=== PATIENT | female | born 1960 | race Caucasian/White ===

== ENCOUNTER → 2016-07-15 | Outpatient (CLI) | payer OTHER | LOC: WI 13:27 | DX: Z12.31 Encounter for screening mammogram for malignant neoplasm of breast (principal); Z00.00 Encounter for general adult medical examination without abnormal findings | CPT/HCPCS: 77067; G0202 ==

== ENCOUNTER 2016-10-11 06:15 | Emergency (ER) | payer OTHER ==
[2016-10-11 06:23] VITALS: BP 150/102
--- NOTE | 2016-10-11 06:45 | ER Document Report ---
ED General - General Chief Complaint: Sinus Congestion Stated Complaint: SORE THROAT Time Seen by Provider: 10/11/16 06:26 Mode of Arrival: Ambulatory Information source: Patient Notes: 56 yr old female presents with complaints of frontal sinus pressure of 3 week duraiton and drainage from the eyes of 5 weeks duration. pt denies any fevers or chills. pt notes she was on azithromycin with some improvement. admits to intermittent productive cough, is a smoker TRAVEL OUTSIDE OF THE [place] IN LAST 30 DAYS: No - HPI Onset: Other Onset/Duration: Persistent Quality of pain: No pain Severity: Mild Pain Level: Denies Associated symptoms: Productive cough, Sinus pain/drainage Exacerbated by: Denies Relieved by: Denies Similar symptoms previously: Yes Recently seen / treated by doctor: Yes - Related Data Allergies/Adverse Reactions: Sulfa (Sulfonamide Antibiotics) Allergy (Verified 10/11/16 06:23) Past Medical History - Social History Smoking Status: Current Every Day Smoker Cigarette use (# per day): Yes Chew tobacco use (# tins/day): No Smoking Education Provided: No Family History: Reviewed & Not Pertinent Patient has suicidal ideation: No Patient has homicidal ideation: No Renal/ Medical History: Denies: Hx Peritoneal Dialysis Review of Systems - Review of Systems Notes: REVIEW OF SYSTEMS: CONSTITUTIONAL : Denies fever, chills, or sweats. Denies recent illness. EENT: admits to sinus drainage , admits to sore throat CARDIOVASCULAR: Denies chest pain. Denies palpitations or racing or irregular heart beat. Denies ankle edema. RESPIRATORY: admits to cough productive GASTROINTESTINAL: Denies abdominal pain or distention. Denies nausea, vomiting , or diarrhea. Denies blood in vomitus, stools, or per rectum. Denies black, tarry stools. Denies constipation. GENITOURINARY: Denies difficulty urinating, painful urination, burning, frequency, blood in urine, or discharge. FEMALE GENITOURINARY: Denies vaginal bleeding, heavy or abnormal periods, irregular periods. Denies vaginal discharge or odor. MUSCULOSKELETAL: Denies back or neck pain or stiffness. Denies joint pain or swelling. SKIN: Denies rash, lesions or sores. HEMATOLOGIC : Denies easy bruising or bleeding. LYMPHATIC: Denies swollen, enlarged glands. NEUROLOGICAL: Denies confusion or altered mental status. Denies passing out or loss of consciousness. Denies dizziness or lightheadedness. Denies headache. Denies weakness or paralysis or loss of use of either side. Denies problems with gait or speech. Denies sensory loss, numbness, or tingling. Denies seizures. PSYCHIATRIC: Denies anxiety or stress. Denies depression, suicidal ideation, or homicidal ideation. ALL OTHER SYSTEMS REVIEWED AND NEGATIVE. PHYSICAL EXAMINATION: GENERAL: Well-appearing, well-nourished and in no acute distress. HEAD: Atraumatic, normocephalic. EYES: conjunctival erythema , no drainage ENT: Nares patent, oropharynx clear without exudates. Moist mucous membranes. NECK: Normal range of motion, supple without lymphadenopathy LUNGS: Breath sounds clear to auscultation bilaterally and equal. No wheezes rales or rhonchi. HEART: Regular rate and rhythm without murmurs ABDOMEN: Soft, nontender, nondistended abdomen. No guarding, no rebound. No masses appreciated. Female : deferred Musculoskeletal: Normal range of motion, no pitting or edema. No cyanosis. NEUROLOGICAL: Cranial nerves grossly intact. Normal speech, normal gait. Normal sensory, motor exams PSYCH: Normal mood, normal affect. SKIN: Warm, Dry, normal turgor, no rashes or lesions noted. Dictation was performed using [employer] voice recognition software Physical Exam - Vital signs Vitals: Temp Pulse Resp BP Pulse Ox 98.0 F 86 18 150/102 H 99 10/11/16 06:20 10/11/16 06:20 10/11/16 06:20 10/11/16 06:20 10/11/16 06:20 Course - Re-evaluation Re-evalutation: 10/11/16 06:45 Patient overall looks well will be started on antibiotics for her sinusitis that she is insisting on as well as steroids. Patient also wishes to be treated for conjunctivitis given that symptoms have been ongoing greater than 4 weeks I will treat as bacterial as it has not since improved After performing a Medical Screening Examination, I estimate there is LOW risk for ACUTE CORONARY SYNDROME, RESPIRATORY FAILURE, SEPSIS OR MENINGITIS, thus I consider the discharge disposition reasonable. I have reevaluated this patient multiple times and no significant life threatening changes are noted. The patient and I have discussed the diagnosis and risks, and we agree with discharging home with close follow-up. We also discussed returning to the Emergency Department immediately if new or worsening symptoms occur. We have discussed the symptoms which are most concerning (e.g., changing or worsening pain, trouble swallowing or breathing, neck stiffness, fever) that necessitate immediate return. - Vital Signs Vital signs: Temp Pulse Resp BP Pulse Ox 98.0 F 86 18 150/102 H 99 10/11/16 06:20 10/11/16 06:20 10/11/16 06:20 10/11/16 06:20 10/11/16 06:20 Discharge - Discharge Clinical Impression: Bacterial conjunctivitis Sinusitis Qualifiers: Sinusitis location: frontal Chronicity: subacute Qualified Code(s): J01.10 - Acute frontal sinusitis, unspecified Condition: Stable Disposition: HOME, SELF-CARE Instructions: Conjunctivitis ([facility]) Additional Instructions: Follow up with your physician tomorrow for further care or return to the ED IMMEDIATELY if symptoms worsen or new concerns occur. If you cannot afford to follow up with your primary care physician a list of low cost clinics have been provided at the end of your discharge papers as well. Prescriptions: Amox Tr/Potassium Clavulanate [Augmentin 875-125 Tablet] 1 tab PO BID 10 Days Ciprofloxacin HCl [Ciloxan 0.3% Oph Soln 2.5 ml] 2 drop OU Q6 10 Days Prednisone [Deltasone 20 mg Tablet] 3 tab PO DAILY 5 Days
== END 2016-10-11 06:58 | disposition home or self-care (01) ==
LOC: ER 06:15
DX: J01.10 Acute frontal sinusitis, unspecified (principal); H10.9 Unspecified conjunctivitis; R09.81 Nasal congestion; J02.9 Acute pharyngitis, unspecified; R05 Cough; F17.200 Nicotine dependence, unspecified, uncomplicated; F17.210 Nicotine dependence, cigarettes, uncomplicated
CPT/HCPCS: 99283

== ENCOUNTER 2016-11-28 11:02 | Emergency (ER) | payer SELFPAY ==
[2016-11-28] MEDS ORDERED: PREDNISONE 20 MG TABLET PO ONE (11:50)
--- NOTE | 2016-11-28 13:08 | ER Document Report ---
HPI - HPI Patient complains to provider of: Skin rash, eye itching Onset: Other - Facial rash started today, I itching for the past 3 months Onset/Duration: Persistent Quality of pain: No pain Pain Level: Denies Context: Patient states that she woke up with a facial rash today. Patient denies any new foods, medications, or detergents. Patient complains of itching eyes that have been red for the past 3 months. Patient has been on several courses of eyedrops but has not followed up with an production support consultant because she does not have any insurance. Patient does not wear contact lenses but does occasionally wear reading glasses. Patient denies any change in vision. Patient states that she has had just clear drainage from her eyes. Patient denies any difficulty breathing or chest pain. Associated Symptoms: Other - Facial rash, eye redness Exacerbated by: Denies Relieved by: Denies Similar symptoms previously: Yes Recently seen / treated by doctor: No - ROS ROS below otherwise negative: Yes Systems Reviewed and Negative: Yes All other systems reviewed and negative - CONSTITUTIONAL Constitutional: DENIES: Fever, Chills - EENT EENT: REPORTS: Eye problems. 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 IN LAST 30 DAYS: No - HEENT HEENT: Atraumatic, Normocephalic. negative: Pharyngeal Exudate, Pharyngeal Tenderness, Pharyngeal Erythema, Tympanic Membrane Red, Tympanic Membrane Bulging Notes: No angioedema, no potential airway compromise Extraocular movements intact, Perrl, no fluorescein uptake, no corneal abrasion , dendrite, ulcer, or foreign body Sclera of lateral eyes mildly injected with mild tearing. - NECK Neck: Normal Inspection, Supple - RESPIRATORY Respiratory: Breath Sounds Normal, No Respiratory Distress, Chest Non-Tender O2 Sat by Pulse Oximetry: 99 - CARDIOVASCULAR Cardiovascular: Regular Rate, Regular Rhythm, No Murmur - BACK Back: Normal Inspection - MUSCULOSKELETAL/EXTREMETIES Musculoskeletal/Extremeties: MAEW, FROM - NEURO Level of Consciousness: Awake, Alert, Appropriate Motor/Sensory: No Motor Deficit - DERM Integumentary: Warm, Dry, Rash - mild erythematous rash to face, no angioedema Course - Re-evaluation Re-evalutation: 11/28/16 The patient has been informed that they may have pre-hypertension or hypertension based on a blood pressure reading in the emergency department. I recommend that patient call the primary care provider listed on their discharge instructions or a physician of their choice by this week to arrange follow-up for further evaluation of possible pre-hypertension or hypertension. Patient strongly encouraged to follow-up with production support consultant for further evaluation given that she has had the symptoms for several months. Patient encouraged to take [id number] antihistamine daily such as Claritin, Zyrtec or Radha. - Vital Signs Vital signs: Temp Pulse Resp BP Pulse Ox 97.7 F 84 16 142/93 H 99 11/28/16 11:09 11/28/16 11:09 11/28/16 11:09 11/28/16 11:09 11/28/16 11:09 Discharge - Discharge Clinical Impression: Elevated blood pressure reading, Skin rash Allergic conjunctivitis Qualifiers: Laterality: bilateral Qualified Code(s): H10.13 - Acute atopic conjunctivitis, bilateral Condition: Stable Disposition: HOME, SELF-CARE Instructions: Conjunctivitis, Allergic, Steroid Medication Additional Instructions: Return immediately for any new or worsening symptoms Followup with your primary care provider, call tomorrow to make a followup appointment Follow-up with production support consultant for further evaluation Take an antihistamine such as Zyrtec [id number] daily for your symptoms Prescriptions: Naphazoline HCl/Pheniramine [Eye Allergy Relief Drops] 1 drop OP QID #1 bottle RX: Prednisone [Deltasone 20 mg Tablet] 3 tab PO DAILY 4 Days tablet Referrals: ROBINA ESPINOSA MD [Primary Care Provider] - Follow up as needed [facility] [Provider Group] - Follow up tomorrow
[2016-11-28 13:32] VITALS: BP 140/85
== END 2016-11-28 13:32 | disposition home or self-care (01) ==
LOC: ER 11:02
DX: H10.13 Acute atopic conjunctivitis, bilateral (principal); R21 Rash and other nonspecific skin eruption; R03.0 Elevated blood-pressure reading, without diagnosis of hypertension; F17.200 Nicotine dependence, unspecified, uncomplicated
CPT/HCPCS: 99282; J7512

== ENCOUNTER 2016-12-04 00:37 | Emergency (ER) | payer OTHER ==
[2016-12-04] MEDS ORDERED: LIDOCAINE 4%/TETRACAINE 0.5%/EPI 0.18% 5 ML TOPICAL SOLN TOP ONE (04:23)
[2016-12-04] MEDS ORDERED: LIDOCAINE 1% INJ-PF (10 MG/ML) 30 ML SDV INJ ONE (04:23)
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
[2016-12-04 06:31] VITALS: BP 136/84
== END 2016-12-04 06:38 | disposition home or self-care (01) ==
LOC: ER 00:37
PROC: 0HQ1XZZ Repair Face Skin, External Approach (ICD-10-PCS; principal; 2016-12-04)
DX: S02.40DA Maxillary fracture, left side, initial encounter for closed fracture (principal); S01.112A Laceration without foreign body of left eyelid and periocular area, initial encounter; Y04.2XXA Assault by strike against or bumped into by another person, initial encounter; I10 Essential (primary) hypertension; Z88.5 Allergy status to narcotic agent; Z88.2 Allergy status to sulfonamides
CPT/HCPCS: 99284; 70486; 12013; J3490 ×2

== ENCOUNTER 2016-12-13 09:47 | Emergency (ER) | payer OTHER ==
[2016-12-13 09:51] VITALS: BP 128/93
--- NOTE | 2016-12-13 10:05 | ER Document Report ---
HPI - HPI Patient complains to provider of: Suture removal Onset: Other - 8 days ago Onset/Duration: Better Quality of pain: No pain Pain Level: Denies Context: Patient presents for suture removal to laceration to left brow area. Patient denies any problems with the laceration. She states she does have a history of anxiety and is requesting a refill of benzodiazepine drug. Associated Symptoms: Other - Suture removal Exacerbated by: Denies Relieved by: Denies Similar symptoms previously: No Recently seen / treated by doctor: Yes - ROS ROS below otherwise negative: Yes Systems Reviewed and Negative: Yes All other systems reviewed and negative - CONSTITUTIONAL Constitutional: DENIES: Fever - NEURO Neurology: DENIES: Headache - GASTROINTESTINAL Gastrointestinal: DENIES: Nausea, Patient vomiting - DERM Skin Color: Normal Skin Problems: Laceration - Sutured laceration Past Medical History - General Information source: Patient - Social History Smoking Status: Current Every Day Smoker Occupation: [employer] Family History: Reviewed & Not Pertinent - Past Medical History Cardiac Medical History: Reports: Hx Hypercholesterolemia, Hx Hypertension Renal/ Medical History: Denies: Hx Peritoneal Dialysis Psychiatric Medical History: Reports: Hx Anxiety Past Surgical History: Reports: Hx Section - Immunizations Hx Diphtheria, Pertussis, Tetanus Vaccination: Yes Vertical Provider Document - CONSTITUTIONAL Agree With Documented VS: Yes Exam Limitations: No Limitations General Appearance: WD/WN, No Apparent Distress - INFECTION CONTROL TRAVEL OUTSIDE OF THE [place] IN LAST 30 DAYS: No - HEENT HEENT: Normocephalic, PERRLA Notes: Sutured laceration to left brow area with 8 intact sutures, wound edges approximated, patient with resolving ecchymosis to left periorbital area. Extraocular movements intact. - NECK Neck: Normal Inspection - RESPIRATORY Respiratory: No Respiratory Distress O2 Sat by Pulse Oximetry: 98 - MUSCULOSKELETAL/EXTREMETIES Musculoskeletal/Extremeties: MAEW - NEURO Level of Consciousness: Awake, Alert, Appropriate Motor/Sensory: No Motor Deficit - DERM Integumentary: Warm, Dry, Laceration - Sutured 3 cm laceration to left brow area Course - Re-evaluation Re-evalutation: 12/13/16 Patient advised that emergency department does not refill anxiety medications and that she will need to see either her primary doctor her mental health provider for refill of this medication. Patient without any suicidal or homicidal ideation at this time. Patient complains only of increased stress involving work. - Vital Signs Vital signs: Temp Pulse Resp BP Pulse Ox 97.9 F 96 16 128/93 H 98 12/13/16 09:49 12/13/16 09:49 12/13/16 09:49 12/13/16 09:49 12/13/16 09:49 Discharge - Discharge Clinical Impression: Encounter for removal of sutures Condition: Stable Disposition: HOME, SELF-CARE Instructions: Suture Removal Additional Instructions: Return immediately for any new or worsening symptoms Followup with your primary care provider, call tomorrow to make a followup appointment Referrals: [facility] [Provider Group] - Follow up as needed
== END 2016-12-13 10:33 | disposition home or self-care (01) ==
LOC: ER 09:47
DX: Z48.02 Encounter for removal of sutures (principal); Z20.2 Contact with and (suspected) exposure to infections with a predominantly sexual mode of transmission; F41.9 Anxiety disorder, unspecified; F17.200 Nicotine dependence, unspecified, uncomplicated

== ENCOUNTER → 2017-02-10 | Outpatient (CLI) | payer OTHER ==
[2017-02-10 11:49] LABS: ABSOLUTE BASOPHILS # (AUTO) 0.1 10^3/uL (0.0-0.2); ABSOLUTE EOSINOPHILS # (AUTO) 0.1 10^3/uL (0.0-0.6); ABSOLUTE LYMPHOCYTES (AUTO) 2.8 10^3/uL (0.5-4.7); ABSOLUTE MONOCYTES (AUTO) 0.7 10^3/uL (0.1-1.4); ABSOLUTE NEUT (AUTO) 5.1 10^3/uL (1.7-8.2); BASOPHILS % (AUTO) 0.6 % (0-2); EOSINOPHILS % (AUTO) 1.5 % (0-6); HEMATOCRIT 41.9 % (36.0-47.0); HEMOGLOBIN 14.8 g/dL (12.0-15.5); HGB HCT DIFFERENCE 2.5; LYMPHOCYTES % (AUTO) 31.6 % (13-45); MEAN CORPUSCULAR HEMOGLOBIN 36.7 pg (27.0-33.4); MEAN CORPUSCULAR HGB CONC 35.3 g/dL (32.0-36.0); MEAN CORPUSCULAR VOLUME 104 fl (80-97); MONOCYTES % (AUTO) 7.6 % (3-13); RED BLOOD COUNT 4.02 10^6/uL (3.72-5.28); RED CELL DISTRIBUTION WIDTH 12.4 % (11.5-14.0); SEGMENTED NEUTROPHILS % (AUTO) 58.7 % (42-78); WHITE BLOOD COUNT 8.7 10^3/uL (4.0-10.5)
[2017-02-10 12:10] LABS: ALANINE AMINOTRANSFERASE 37 U/L (9-52); ALBUMIN 4.6 g/dL (3.5-5.0); ALKALINE PHOSPHATASE 113 U/L (38-126); ANION GAP 16 (5-19); ASPARTATE AMINO TRANSFERASE 37 U/L (14-36); BILIRUBIN,DIRECT 0.5 mg/dL (0.0-0.4); BILIRUBIN,TOTAL 0.7 mg/dL (0.2-1.3); BLOOD UREA NITROGEN 10 mg/dL (7-20); CALCIUM 9.8 mg/dL (8.4-10.2); CARBON DIOXIDE 24 mmol/L (22-30); CHLORIDE 101 mmol/L (98-107); CHOLESTEROL 219.83 mg/dL (0-200); CREATININE RESULT 0.56 mg/dL (0.52-1.25); Direct HDL 60 mg/dL (>40); GLUCOSE 112 mg/dL (75-110); POTASSIUM 4.1 mmol/L (3.6-5.0); SODIUM 140.7 mmol/L (137-145); TOTAL PROTEIN 7.1 g/dL (6.3-8.2); TRIGLYCERIDES 255 mg/dL (<150)
[2017-02-10 12:21] LABS: DIRECT LDL 138 mg/dL (<100)
== END ==
LOC: CCC 11:23
DX: I10 Essential (primary) hypertension (principal)
CPT/HCPCS: 36415; 80053; 80061; 83036; 84443; 85025

== ENCOUNTER → 2018-01-26 | Outpatient (CLI) | payer OTHER ==
--- NOTE | 2018-01-26 11:57 | WOMENS IMAGING REPORT ---
EXAM DESCRIPTION: BILAT SCREENING MAMMO W/CAD COMPLETED DATE/TIME: 01/26/2018 10:11 am REASON FOR STUDY: SCREENING MAMMO Z12.31 ENCNTR SCREEN MAMMOGRAM FOR MALIGNANT NEOPLASM OF BRANDON COMPARISON: 07/15/2016 TECHNIQUE: Standard craniocaudal and mediolateral oblique views of each breast recorded using digita l acquisition. Additional "push-back" craniocaudal and mediolateral oblique images acquired. LIMITATIONS: None. FINDINGS: IMPLANTS: Bilateral subglandular implants. Peripheral calcifications around the implants bilaterally. Findings present which are benign by mammographic criteria. No suspicious masses, calcifications or architectural distortion. Read with the assistance of CAD. .[facility] - R2 Cenova Version 1.3 .[facility] Imaging - R2 Cenova Version 1.3 .[facility] Imaging - R2 Cenova Version 2.4 .[facility] - R2 Cenova Version 2.4 .[facility] - R2 Degreasing Solution Reclaimer Version 9.2 Benign mammographic findings may include one or more of the following: Smooth masses, popcorn/rim/co arse calcifications, asymmetries, post-procedure changes, and lesions with long-standing stability. IMPRESSION: BENIGN MAMMOGRAPHIC FINDINGS. BIRADS 2 BREAST DENSITY: b. There are scattered areas of fibroglandular density. BIRAD: 2 BENIGN FINDING(S) RECOMMENDATION: ROUTINE SCREENING COMMENT: The patient has been notified of the results by letter per SA requirements. Additional no tification policies are in place for contacting patient with suspicious or incomplete findings. Quality ID #225: The [employer] recommends an annual screening mammogram for women aged 40 years or over. This facility utilizes a reminder system to ensure that all patients receive reminder letters, and/or direct phone calls for appointments. This includes reminders for routine scr eening mammograms, diagnostic mammograms, or other Breast Imaging Interventions when appropriate. Th is patient will be placed in the appropriate reminder system. The [employer] (ACR) has developed recommendations for screening MRI of the breast s in certain patient populations, to be used in conjunction with mammography. Breast MRI surveillanc e may be appropriate for women with more than 20% lifetime risk of developing breast cancer as deter mined by genetic testing, significant family history of the disease, or history of mantle radiation f or Hodgkins Disease. ACR Practice Guidelines 2008. TECHNICAL DOCUMENTATION: FINDING NUMBER: (1) ASSESSMENT: (1) JOB ID: [id number] [employer]- All Rights Reserved Reading location - IP/workstation name: [email or web address]
== END ==
LOC: WI 09:25
PROVIDERS: ATTEND Family Medicine
DX: Z12.31 Encounter for screening mammogram for malignant neoplasm of breast (principal)
CPT/HCPCS: 77067

== ENCOUNTER 2019-03-22 14:22 | Emergency (ER) | payer OTHER ==
[2019-03-22] MEDS ORDERED: NORMAL SALINE 1000 ML 1,000 ML IV ONE (14:43)
--- NOTE | 2019-03-22 14:44 | ER Document Report ---
ED Respiratory Problem - General Chief Complaint: Cold Symptoms Stated Complaint: COUGH/CONJESTION Time Seen by Provider: 03/22/19 14:38 Primary Care Provider: ROBINA ESPINOSA MD [Primary Care Provider] - Follow up as needed Mode of Arrival: Ambulatory Information source: Patient Notes: 59-year-old female presents to ED for complaint of cough congestion feeling sick all the time. She states she is running to the bathroom frequently. She states she knows the diabetes 1 of the symptoms is urinating frequently so she thinks that is part of what is going on with her right now. She states that her urine smells like caramels. She states the last time she went to the doctor's office her blood sugar was about 165 and she was told she needed to get blood work ch ecked. She states for the last 2 weeks she is peeing frequently and she is feeling very sick. I have greeted and performed a rapid initial assessment of this patient. A comprehensive ED assessment and evaluation of the patient, analysis of test results and completion of medical decision making process will be conducted by an additional ED providers. TRAVEL OUTSIDE OF THE [place] IN LAST 30 DAYS: No - Related Data Allergies/Adverse Reactions: codeine Allergy (Verified 03/22/19 14:38) Sulfa (Sulfonamide Antibiotics) Allergy (Verified 03/22/19 14:38) Past Medical History - General Information source: Patient - Social History Smoking Status: Current Every Day Smoker Cigarette use (# per day): Yes - Pack a day Smoking Education Provided: Yes - 4 min Frequency of alcohol use: 2 beer a day Drug Abuse: None Lives with: Alone Family History: Reviewed & Not Pertinent, Arthritis Patient has suicidal ideation: No Patient has homicidal ideation: No - Past Medical History Cardiac Medical History: Reports: Hx Hypercholesterolemia, Hx Hypertension Pulmonary Medical History: Reports: Hx Bronchitis EENT Medical History: Reports: None Neurological Medical History: Reports: None Endocrine Medical History: Reports: Hx Diabetes Mellitus Type 2 Renal/ Medical History: Reports: None Malignancy Medical History: Reports: None GI Medical History: Reports: None Psychiatric Medical History: Reports: Hx Anxiety Past Surgical History: Reports: Hx Section - Immunizations Hx Diphtheria, Pertussis, Tetanus Vaccination: Yes Physical Exam - Vital signs Vitals: Temp Pulse Resp BP Pulse Ox 97.6 F 91 16 145/88 H 96 03/22/19 14:27 03/22/19 14:27 03/22/19 14:27 03/22/19 14:27 03/22/19 14:27 Course - Vital Signs Vital signs: Temp Pulse Resp BP Pulse Ox 97.6 F 91 16 145/88 H 96 03/22/19 14:27 03/22/19 14:27 03/22/19 14:27 03/22/19 14:27 03/22/19 14:27 Discharge - Discharge Referrals: ROBINA ESPINOSA MD [Primary Care Provider] - Follow up as needed
--- NOTE | 2019-03-22 14:45 | ER Document Report ---
ED Medical Screen (RME) - General Chief Complaint: Cold Symptoms Stated Complaint: COUGH/CONJESTION Time Seen by Provider: 03/22/19 14:38 Primary Care Provider: ROBINA ESPINOSA MD [Primary Care Provider] - Follow up as needed Mode of Arrival: Ambulatory Notes: 59-year-old female presents to ED for complaint of cough congestion feeling sick all the time. She states she is running to the bathroom frequently. She states she knows the diabetes 1 of the symptoms is urinating frequently so she thinks that is part of what is going on with her right now. She states that her urine smells like caramels. She states the last time she went to the doctor's office her blood sugar was about 165 and she was told she needed to get blood work checked. She states for the last 2 weeks she is peeing frequently and she is feeling very sick. I have greeted and performed a rapid initial assessment of this patient. A comprehensive ED assessment and evaluation of the patient, analysis of test r esults and completion of medical decision making process will be conducted by an additional ED providers. TRAVEL OUTSIDE OF THE [place] IN LAST 30 DAYS: No - Related Data Allergies/Adverse Reactions: codeine Allergy (Verified 03/22/19 14:38) Sulfa (Sulfonamide Antibiotics) Allergy (Verified 03/22/19 14:38) Past Medical History - Social History Cigarette use (# per day): Yes - Pack a day Frequency of alcohol use: 2 beer a day Drug Abuse: None - Past Medical History Cardiac Medical History: Reports: Hx Hypercholesterolemia, Hx Hypertension Pulmonary Medical History: Reports: Hx Bronchitis EENT Medical History: Reports: None Neurological Medical History: Reports: None Endocrine Medical History: Reports: Hx Diabetes Mellitus Type 2 Renal/ Medical History: Reports: None Malignancy Medical History: Reports: None GI Medical History: Reports: None Psychiatric Medical History: Reports: Hx Anxiety Past Surgical History: Reports: Hx Section - Immunizations Hx Diphtheria, Pertussis, Tetanus Vaccination: Yes Physical Exam - Vital signs Vitals: Temp Pulse Resp BP Pulse Ox 97.6 F 91 16 145/88 H 96 03/22/19 14:27 03/22/19 14:27 03/22/19 14:27 03/22/19 14:27 03/22/19 14:27 Course - Vital Signs Vital signs: Temp Pulse Resp BP Pulse Ox 97.6 F 91 16 145/88 H 96 03/22/19 14:27 03/22/19 14:27 03/22/19 14:27 03/22/19 14:27 03/22/19 14:27 Doctor's Discharge - Discharge Referrals: ROBINA ESPINOSA MD [Primary Care Provider] - Follow up as needed
[2019-03-22 15:25] LABS: ABSOLUTE BASOPHILS # (AUTO) 0.1 10^3/uL (0.0-0.2); ABSOLUTE EOSINOPHILS # (AUTO) 0.1 10^3/uL (0.0-0.6); ABSOLUTE LYMPHOCYTES (AUTO) 2.8 10^3/uL (0.5-4.7); ABSOLUTE MONOCYTES (AUTO) 0.7 10^3/uL (0.1-1.4); ABSOLUTE NEUT (AUTO) 6.4 10^3/uL (1.7-8.2); BASOPHILS % (AUTO) 0.6 % (0-2); EOSINOPHILS % (AUTO) 0.7 % (0-6); HEMATOCRIT 39.7 % (36.0-47.0); LYMPHOCYTES % (AUTO) 28.2 % (13-45); MEAN CORPUSCULAR HEMOGLOBIN 36.5 pg (27.0-33.4); MEAN CORPUSCULAR HGB CONC 35.2 g/dL (32.0-36.0); MEAN CORPUSCULAR VOLUME 104 fl (80-97); MONOCYTES % (AUTO) 6.8 % (3-13); PLATELET COUNT 311 10^3/uL (150-450); RED BLOOD COUNT 3.83 10^6/uL (3.72-5.28); RED CELL DISTRIBUTION WIDTH 12.2 % (11.5-14.0); SEGMENTED NEUTROPHILS % (AUTO) 63.7 % (42-78); TOTAL CELLS COUNTED % (AUTO) 100 %; WHITE BLOOD COUNT 10.1 10^3/uL (4.0-10.5)
[2019-03-22 15:33] LABS: APPEARANCE,URINE CLEAR; BILIRUBIN,URINE NEGATIVE (NEGATIVE); COLOR,URINE STRAW; GLUCOSE, URINE NEGATIVE (NEGATIVE); KETONES,URINE NEGATIVE (NEGATIVE); PROTEIN,URINE NEGATIVE (NEGATIVE); URINE SPECIFIC GRAVITY 1.005; UROBILINOGEN,URINE NEGATIVE mg/dL (<2.0)
[2019-03-22 15:41] LABS: ALBUMIN 4.7 g/dL (3.5-5.0); ALKALINE PHOSPHATASE 98 U/L (38-126); ANION GAP 10 (5-19); ASPARTATE AMINO TRANSFERASE 35 U/L (14-36); BILIRUBIN,DIRECT 0.2 mg/dL (0.0-0.4); BILIRUBIN,TOTAL 0.6 mg/dL (0.2-1.3); BLOOD UREA NITROGEN 5 mg/dL (7-20); CALCIUM 10.2 mg/dL (8.4-10.2); CARBON DIOXIDE 31 mmol/L (22-30); CHLORIDE 95 mmol/L (98-107); GLUCOSE 164 mg/dL (75-110); POTASSIUM 4.2 mmol/L (3.6-5.0); TOTAL PROTEIN 7.6 g/dL (6.3-8.2)
--- NOTE | 2019-03-22 16:09 | ER Document Report ---
ED General - General Chief Complaint: Productive Cough Stated Complaint: COUGH/CONJESTION Time Seen by Provider: 03/22/19 14:38 Primary Care Provider: ROBINA ESPINOSA MD [Primary Care Provider] - Follow up tomorrow (call tomorrow to alert primary provider ED drShyanne 03/22/18 feels you need appointment for smoking cessation plan options and education & that ER dr is concerned for COPD and needs referral for pulmonary dr. the social sciences professor from [employer] will call you tomorrow 03/23 to help you with coordinating w/ the [facility] w/ this referral and any other available assistance for meds, care, and or applying for potential insurance sources. ) Mode of Arrival: Ambulatory TRAVEL OUTSIDE OF THE [place] IN LAST 30 DAYS: No - HPI Notes: 59F current smoker presents today ambulatory to ED for cough, chest and nasal/sinus congestion for ~2 weeks. no prior d/o copd she says but has had "bronchitis" intermittently over last few yr. she feels today she just needs some abx and she'll clear up as in prior times. no abx use in months. no steroid use. no currently prescribed inhalers. denies f/c/s. no n/v, pain anywhere. says really only becomes dyspneic if has coughing spell. lately or walking longer distances beyond just around her home. no pleuritic pain. no PND events or orthopnea or swelling no (near) passing out or palpitations. no diffi culty swallowing or throat sx. no sick contacts. 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 Lives with: Alone Family History: Reviewed & Not Pertinent Patient has suicidal ideation: No Patient has homicidal ideation: No - Past Medical History Cardiac Medical History: Reports: Hx Hypercholesterolemia, Hx Hypertension Pulmonary Medical History: Reports: Hx Bronchitis EENT Medical History: Reports: None Neurological Medical History: Reports: None Endocrine Medical History: Reports: Hx Diabetes Mellitus Type 2 Renal/ Medical History: Reports: None Malignancy Medical History: Reports: None GI Medical History: Reports: None Psychiatric Medical History: Reports: Hx Anxiety Past Surgical History: Reports: Hx Section - Immunizations Hx Diphtheria, Pertussis, Tetanus Vaccination: Yes Review of Systems - Review of Systems Constitutional: No symptoms reported, See HPI, Malaise. denies: Chills, Diaphoresis, Fever, Weakness, Weight gain, Weight loss EENT: See HPI, Nose congestion, Sinus pressure, Sinus discharge. denies: Eye pain, Eye discharge, Blurred vision, Double vision, Ear pain, Ear discharge, Nose pain, Throat pain, Difficulty swallowing, Throat swelling, Mouth pain, Mouth swelling, Dental problem, Vertigo Cardiovascular: No symptoms reported. denies: Chest pain, Palpitations, Heart racing, Orthopnea, Syncope, Dizziness, Lightheaded, Edema, Paroxysmal Nocturnal Dysp Respiratory: See HPI, Cough, Short of breath, Sputum, Wheezing. denies: Hurts to breathe, Hemoptysis, Stridor Gastrointestinal: No symptoms reported Genitourinary: No symptoms reported Female Genitourinary: No symptoms reported Musculoskeletal: No symptoms reported Skin: No symptoms reported Hematologic/Lymphatic: No symptoms reported Neurological/Psychological: No symptoms reported Physical Exam - Vital signs Vitals: Temp Pulse Resp BP Pulse Ox 97.6 F 91 16 145/88 H 96 03/22/19 14:27 03/22/19 14:27 03/22/19 14:27 03/22/19 14:27 03/22/19 14:27 Interpretation: Normal - General General appearance: Alert In distress: None - at rest speaking in full sentences. voice is raspy c/w long time smoking. - HEENT Head: Normocephalic, Atraumatic Eyes: Normal. No: Pale conjunctiva, Scleral icterus Conjunctiva: Normal. No: Injected, Purulent discharge Extraocular movements intact: Yes Eyelashes: Normal Pupils: PERRL Nerve palsy: No Ears: Normal External canal: Normal Tympanic membrane: Normal Sinus: Normal Nasal: Normal Mouth/Lips: Normal Mucous membranes: Dry Pharynx: Normal. No: Erythema, Exudate, Tonsillar hypertrophy, Uvular edema, Potential airway comprom. Neck: Normal, Supple. No: Lymphadenopathy, Meningismus, Neck mass, Subcutaneous emphysema, Thyromegally - Respiratory Respiratory status: Tachypnea - mild tachypnea after ambulation. decreased inspiratory and expiratory phases very very faint end exp wheeze becoming more audible after 1, 2, 3 duoneb Rx adn inc phases of ventilation w/ each. No: Cyanosis Chest status: Nontender. No: Tender, No pleuritic chest pain, Pain on movement, Pain with cough, Pain with deep breathing, Accessory muscle use, Splinting Breath sounds: Decreased air movement, Nonproductive cough, Wheezing Chest palpation: Normal - Cardiovascular Rhythm: Regular Heart sounds: Normal auscultation Murmur: No - Abdominal Inspection: Normal Distension: No distension Bowel sounds: Normal Tenderness: Nontender Organomegaly: No organomegaly - Back Back: Normal, Nontender - Extremities General upper extremity: Normal inspection, Nontender, Normal color, Normal ROM, Normal temperature General lower extremity: Normal inspection, Nontender, Normal color, Normal ROM, Normal temperature, Normal weight bearing. No: Bryan's sign - Neurological Neuro grossly intact: Yes Cognition: Normal Orientation: AAOx4 [place]enny Coma Scale Eye Opening: Spontaneous [place] Coma Scale Verbal: Oriented [place]enny Coma Scale Motor: Obeys Commands Genny Coma Scale Total: 15 Speech: Normal Motor strength normal: LUE, RUE, LLE, RLE Sensory: Normal - Psychological Associated symptoms: Normal affect, Normal mood - Skin Skin Temperature: Warm Skin Moisture: Dry Skin Color: Normal Course - Vital Signs Vital signs: Temp Pulse Resp BP Pulse Ox 97.7 F 90 20 142/86 H 96 03/22/19 20:40 03/22/19 20:40 03/22/19 20:40 03/22/19 20:40 03/22/19 20:40 - Laboratory Result Diagrams: 03/22/19 15:00 03/22/19 15:00 Laboratory results interpreted by me: 03/22/19 03/22/19 03/22/19 14:53 15:00 15:00 MCV 104 H MCH 36.5 H Sodium 136.2 L Chloride 95 L Carbon Dioxide 31 H BUN 5 L Glucose 164 H POC Glucose 168 H - EKG Interpretation by Mi EKG shows normal: Sinus rhythm Rate: Normal - 84 Friona/QRS: No: Right axis deviation, Left axis deviation Voltage: No: Increased voltage, Consistant with LVH, Decreased voltage When compared to previous EKG there are: Previous EKG unavailable Discharge - Discharge Clinical Impression: COPD (chronic obstructive pulmonary disease), Chronic bronchitis with emphysema, Smoking greater than 10 pack years, Smoker unmotivated to quit, Deficient knowledge of smoking cessation Condition: Fair Disposition: HOME, SELF-CARE Additional Instructions: call tomorrow to alert primary provider ED 03/22/18 feels you need appointment for smoking cessation plan options and education & that ER dr is concerned for COPD and needs referral for pulmonary dr. the social sciences professor from [employer] will call you tomorrow 03/23 to help you with coordinating w/ the [facility] w/ this referral and any other available assistance for meds, care, and or applying for potential insurance sources. return if you are worsening despite taking treatments we prescribed today. also if you need help filling the medicatoins i've written today, please talk to the [employer] social sciences professor about this as well. Prescriptions: Albuterol Sulfate [Ventolin 0.083% Neb 2.5 mg/3 mL Ampul] 2 puff IH Q4HP PRN #1 vial.neb PRN Reason: Shortness Of Breath Azithromycin 500 mg PO DAILY 5 Days #5 tablet Prednisone 60 mg PO DAILY 5 Days #30 tablet Forms: Return to Work Referrals: ROBINA ESPINOSA MD [Primary Care Provider] - Follow up tomorrow (call tomorrow to alert primary provider ED 03/22/18 feels you need appointment for smoking cessation plan options and education & that ER dr is concerned for COPD and needs referral for pulmonary dr. the social sciences professor from [employer] will call you tomorrow 03/23 to help you with coordinating w/ the [facility] w/ this referral and any other available assistance for meds, care, and or applying for potential insurance sources. )
--- NOTE | 2019-03-22 16:49 | RADIOLOGY REPORT (SQ) ---
EXAM DESCRIPTION: CHEST 2 VIEWS COMPLETED DATE/TIME: 03/22/2019 4:36 pm REASON FOR STUDY: cough congestion COMPARISON: None. EXAM PARAMETERS: NUMBER OF VIEWS: two views TECHNIQUE: Digital Frontal and Lateral radiographic views of the chest acquired. RADIATION DOSE: NA LIMITATIONS: none FINDINGS: LUNGS AND PLEURA: No opacities, masses or pneumothorax. No pleural effusion. MEDIASTINUM AND HILAR STRUCTURES: No masses or contour abnormalities. HEART AND VASCULAR STRUCTURES: Heart normal size. No evidence for failure. BONES: No acute findings. HARDWARE: None in the chest. OTHER: No other significant finding. IMPRESSION: NO ACUTE RADIOGRAPHIC FINDING IN THE CHEST. TECHNICAL DOCUMENTATION: JOB ID: [id number] [employer]- All Rights Reserved Reading location - IP/workstation name: [email or web address]
[2019-03-22] MEDS ORDERED: METHYLPREDNISOLONE INJ 125 MG/2 ML SDV IV ONE (17:38)
[2019-03-22] MEDS: IPRATROPIUM/ALBUTEROL 0.5-2.5 MG/3 ML AMPUL NEB PRN ×3 (18:14→20:23)
[2019-03-22 19:33] LABS: A TYPE INFLUENZA AG NEGATIVE (NEGATIVE); B INFLUENZA AG NEGATIVE (NEGATIVE)
[2019-03-22 20:16] VITALS: BP 142/86
--- NOTE | 2019-03-22 22:28 | EKG REPORT ---
SEVERITY:- OTHERWISE NORMAL ECG - SINUS RHYTHM BORDERLINE RIGHT AXIS DEVIATION : Confirmed by: Tello Ruano 22-Mar-2019 22:27:24
== END 2019-03-22 20:40 | disposition home or self-care (01) ==
LOC: ER 14:22
DX: J43.9 Emphysema, unspecified (principal); R05 Cough; R09.89 Other specified symptoms and signs involving the circulatory and respiratory systems; R09.81 Nasal congestion; F17.210 Nicotine dependence, cigarettes, uncomplicated; E11.9 Type 2 diabetes mellitus without complications; I10 Essential (primary) hypertension; Z88.6 Allergy status to analgesic agent; Z88.5 Allergy status to narcotic agent; Z88.2 Allergy status to sulfonamides
CPT/HCPCS: 93005; 94640; 99284; 96361; 96374; 36415; 82962; 85025; 86308; 80053; 81001; 87804; 71046; 93010; J2930; J7030; J7620

== ENCOUNTER → 2019-03-24 | Outpatient (CLI) | payer SELFPAY ==
[2019-03-24 11:08] LABS: ABSOLUTE BASOPHILS # (AUTO) 0.1 10^3/uL (0.0-0.2); ABSOLUTE LYMPHOCYTES (AUTO) 3.2 10^3/uL (0.5-4.7); ABSOLUTE MONOCYTES (AUTO) 0.8 10^3/uL (0.1-1.4); ABSOLUTE NEUT (AUTO) 7.3 10^3/uL (1.7-8.2); BASOPHILS % (AUTO) 0.6 % (0-2); EOSINOPHILS % (AUTO) 0.3 % (0-6); HEMATOCRIT 37.9 % (36.0-47.0); HEMOGLOBIN 13.2 g/dL (12.0-15.5); LYMPHOCYTES % (AUTO) 28.2 % (13-45); MEAN CORPUSCULAR HEMOGLOBIN 36.4 pg (27.0-33.4); MEAN CORPUSCULAR HGB CONC 34.8 g/dL (32.0-36.0); MEAN CORPUSCULAR VOLUME 105 fl (80-97); MONOCYTES % (AUTO) 6.7 % (3-13); PLATELET COUNT 338 10^3/uL (150-450); RED BLOOD COUNT 3.63 10^6/uL (3.72-5.28); RED CELL DISTRIBUTION WIDTH 12.5 % (11.5-14.0); SEGMENTED NEUTROPHILS % (AUTO) 64.2 % (42-78); TOTAL CELLS COUNTED % (AUTO) 100 %; WHITE BLOOD COUNT 11.4 10^3/uL (4.0-10.5)
[2019-03-24 11:42] LABS: ALBUMIN 4.5 g/dL (3.5-5.0); ALKALINE PHOSPHATASE 88 U/L (38-126); ANION GAP 11 (5-19); ASPARTATE AMINO TRANSFERASE 31 U/L (14-36); BILIRUBIN,DIRECT 0.3 mg/dL (0.0-0.4); BILIRUBIN,TOTAL 0.5 mg/dL (0.2-1.3); BLOOD UREA NITROGEN 8 mg/dL (7-20); CALCIUM 10.3 mg/dL (8.4-10.2); CARBON DIOXIDE 32 mmol/L (22-30); CHLORIDE 95 mmol/L (98-107); CHOLESTEROL 133.75 mg/dL (0-200); GLUCOSE 157 mg/dL (75-110); POTASSIUM 3.8 mmol/L (3.6-5.0); TOTAL PROTEIN 7.2 g/dL (6.3-8.2); TRIGLYCERIDES 134 mg/dL (<150)
[2019-03-24 11:53] LABS: DIRECT LDL 62 mg/dL (<100)
[2019-03-24 12:45] LABS: FOLATE > 20.00 ng/mL (>2.76)
== END ==
LOC: LAB 10:26
PROVIDERS: ATTEND Family Medicine
DX: E78.5 Hyperlipidemia, unspecified (principal); D75.89 Other specified diseases of blood and blood-forming organs
CPT/HCPCS: 36415; 80053; 80061; 82607; 82746; 83036; 84443; 85025

== ENCOUNTER → 2019-06-09 | Outpatient (CLI) | payer OTHER ==
--- NOTE | 2019-06-09 13:34 | WOMENS IMAGING REPORT ---
EXAM DESCRIPTION: PINK WARRIOR BILATERAL SCREEN IMAGES COMPLETED DATE/TIME: 06/09/2019 11:09 am REASON FOR STUDY: PINK PINK PINK Z12.31 SCREENING MAMMO PINK PINK PINK Z12.31 ENCNTR SCREEN MAMMOGR AM FOR MALIGNANT NEOPLASM OF BRANDON COMPARISON: None. EXAM PARAMETERS: Standard craniocaudal and mediolateral oblique views of each breast recorded using digital acquisition. Additional "push-back" craniocaudal and mediolateral oblique images acquired. Read with the assistance of CAD. .[facility] - R2 Motion Picture Camera Operator Version 9.2 LIMITATIONS: None. FINDINGS: IMPLANTS: Bilateral subglandular implants. Findings present which are benign by mammographic criteria. No suspicious masses, calcifications or architectural distortion. Benign mammographic findings may include one or more of the following: Smooth masses, popcorn/rim/co arse calcifications, asymmetries, post-procedure changes, and lesions with long-standing stability. IMPRESSION: BENIGN MAMMOGRAPHIC FINDINGS. BIRADS 2 BREAST DENSITY: b. There are scattered areas of fibroglandular density. BIRAD: ASSESSMENT: 2 BENIGN FINDING(S) RECOMMENDATION: ROUTINE SCREENING COMMENT: The patient has been notified of the results by letter per SA requirements. Additional no tification policies are in place for contacting patient with suspicious or incomplete findings. Quality ID #[id number]: The [employer] recommends an annual screening mammogram for women aged 40 years or over. This facility utilizes a reminder system to ensure that all patients receive reminder letters, and/or direct phone calls for appointments. This includes reminders for routine scr eening mammograms, diagnostic mammograms, or other Breast Imaging Interventions when appropriate. Th is patient will be placed in the appropriate reminder system. TECHNICAL DOCUMENTATION: FINDING NUMBER: (1) ASSESSMENT: (1) JOB ID: [id number] 2010 [employer]- All Rights Reserved Reading location - IP/workstation name: [email or web address]
== END ==
LOC: WI 10:50
PROVIDERS: ATTEND Family Medicine
DX: Z12.31 Encounter for screening mammogram for malignant neoplasm of breast (principal)
CPT/HCPCS: 77067

== ENCOUNTER 2019-10-15 03:24 | Observation (INO) | payer SELFPAY ==
[2019-10-15] MEDS ORDERED: NORMAL SALINE 1000 ML 1,000 ML IV ONE (03:49)
[2019-10-15] MEDS ORDERED: ONDANSETRON HCL INJ/PF 4 MG/2 ML SDV IV ONE ×2 (03:49→10:36)
[2019-10-15] MEDS ORDERED: HYDROMORPHONE HCL INJ/PF 2 MG/ML AMPULE IV ONE ×2 (03:50→10:36)
--- NOTE | 2019-10-15 03:59 | ER Document Report ---
Entered by PALMA JACOBO SCRIBE 10/15/19 0352 Acting as scribe for:MARIO LYONS IV, MD ED GI/ - General Mode of Arrival: Medic Information source: Patient TRAVEL OUTSIDE OF THE [place] IN LAST 30 DAYS: No <MARIO LYONS IV - Last Filed: 10/15/19 04:56> <GRAYSONSPARKLE HIDALGO - Last Filed: 10/15/19 10:42> - General Stated Complaint: ABDOMINAL PAIN Time Seen by Provider: 10/15/19 03:35 Primary Care Provider: ROBINA ESPINOSA MD [Primary Care Provider] - Follow up as needed Notes: This 59 year old female patient with a history of pancreatitis brought in by EMS from home presents to the ED today with complaints of epigastric pain that started around 1500 yesterday afternoon. Patient states that the pain is achy in nature and is worse after eating. She mentions that she has had poor PO intake for the last couple of days. She admits to drinking a "few beers with friends last night," but states that she doesn't drink as heavily as she used to. She reports that she tried to eat some crackers and drink jesu torey last night, but it made her nauseous. (MARIO LYONS IV) - Related Data Allergies/Adverse Reactions: codeine Allergy (Verified 03/22/19 14:38) Sulfa (Sulfonamide Antibiotics) Allergy (Verified 03/22/19 14:38) Past Medical History - General Information source: Patient - Social History Smoking Status: Unknown if Ever Smoked Smoking Education Provided: No Frequency of alcohol use: Social Lives with: Alone Family History: Reviewed & Not Pertinent Patient has suicidal ideation: No Patient has homicidal ideation: No - Past Medical History Cardiac Medical History: Reports: Hx Hypercholesterolemia, Hx Hypertension Pulmonary Medical History: Reports: Hx Bronchitis Endocrine Medical History: Reports: Hx Diabetes Mellitus Type 2 GI Medical History: Reports: Hx Pancreatitis Psychiatric Medical History: Reports: Hx Anxiety Past Surgical History: Reports: Hx Section - Immunizations Hx Diphtheria, Pertussis, Tetanus Vaccination: Yes <MARIO LYONS IV - Last Filed: 10/15/19 04:56> Review of Systems - Review of Systems Constitutional: No symptoms reported EENT: No symptoms reported Cardiovascular: No symptoms reported Respiratory: No symptoms reported Gastrointestinal: See HPI, Abdominal pain, Nausea, Poor appetite, Poor fluid intake Genitourinary: No symptoms reported Female Genitourinary: No symptoms reported Musculoskeletal: No symptoms reported Skin: No symptoms reported Hematologic/Lymphatic: No symptoms reported Neurological/Psychological: No symptoms reported -: Yes All other systems reviewed and negative <MARIO LYONS IV - Last Filed: 10/15/19 04:56> Physical Exam - General General appearance: Alert In distress: None - HEENT Head: Normocephalic, Atraumatic Eyes: Normal Pupils: PERRL - Respiratory Respiratory status: No respiratory distress Chest status: Nontender Breath sounds: Normal Chest palpation: Normal - Cardiovascular Rhythm: Regular Heart sounds: Normal auscultation Murmur: No Friction rub: No Gallop: None auscultated - Abdominal Inspection: Normal Distension: No distension Bowel sounds: Normal Tenderness: Tender - Epigastric tenderness to palpation, Other - Abdomen soft Organomegaly: No organomegaly - Back Back: Normal, Nontender - Extremities General upper extremity: Normal inspection General lower extremity: Normal inspection - Neurological Neuro grossly intact: Yes Orientation: AAOx4 Genny Coma Scale Eye Opening: Spontaneous Mobile Coma Scale Verbal: Oriented Genny Coma Scale Motor: Obeys Commands Genny Coma Scale Total: 15 - Psychological Associated symptoms: Normal affect, Normal mood - Skin Skin Temperature: Warm Skin Moisture: Dry Skin Color: Normal <MARIO LYONS IV - Last Filed: 10/15/19 04:56> - Vital signs Vitals: Temp 97.7 F 10/15/19 03:24 Course - Laboratory Result Diagrams: 10/15/19 03:47 10/15/19 03:47 <MARIO LYONS IV - Last Filed: 10/15/19 04:56> - Laboratory Result Diagrams: 10/15/19 03:47 10/15/19 03:47 - Diagnostic Test Radiology reviewed: Reports reviewed - CT scan abdomen pelvis shows acute on chronic pancreatitis. - Consults Siobhan Torres NP Time consulted: 10:30 Consulted provider: will come to ER <SPARKLE GALICIA - Last Filed: 10/15/19 10:42> - Vital Signs Vital signs: Temp Pulse Resp BP Pulse Ox 97.7 F 15 104/74 99 10/15/19 03:24 10/15/19 09:01 10/15/19 09:00 08/01/20 09:01 - Laboratory Laboratory results interpreted by me: 10/15/19 10/15/19 03:47 03:47 MCV 103 H MCH 35.9 H Sodium 131.8 L Potassium 3.4 L Chloride 92 L Carbon Dioxide 31 H Creatinine 0.45 L Glucose 148 H AST 41 H Discharge <MARIO LYONS IV - Last Filed: 10/15/19 04:56> - Discharge Admitting Provider: Christie (Hospitalist) - Siobhan Torres [employer] MANA[employer] will be seeing the patient and writing orders. Unit Admitted: Telemetry <SPARKLE GALICIA - Last Filed: 10/15/19 10:42> - Discharge Clinical Impression: Acute on chronic pancreatitis Condition: Stable Disposition: ADMITTED INPATIENT Referrals: ROBINA ESPINOSA MD [Primary Care Provider] - Follow up as needed I personally performed the services described in the documentation, reviewed and edited the documentation which was dictated to the scribe in my presence, and it accurately records my words and actions.
[2019-10-15 04:53] LABS: ABSOLUTE EOSINOPHILS # (AUTO) 0.1 10^3/uL (0.0-0.6); ABSOLUTE LYMPHOCYTES (AUTO) 2.6 10^3/uL (0.5-4.7); ABSOLUTE MONOCYTES (AUTO) 0.8 10^3/uL (0.1-1.4); ABSOLUTE NEUT (AUTO) 6.2 10^3/uL (1.7-8.2); BASOPHILS % (AUTO) 0.3 % (0-2); EOSINOPHILS % (AUTO) 0.9 % (0-6); HEMOGLOBIN 15.3 g/dL (12.0-15.5); LYMPHOCYTES % (AUTO) 26.4 % (13-45); MEAN CORPUSCULAR HEMOGLOBIN 35.9 pg (27.0-33.4); MEAN CORPUSCULAR HGB CONC 34.8 g/dL (32.0-36.0); MEAN CORPUSCULAR VOLUME 103 fl (80-97); MONOCYTES % (AUTO) 8.6 % (3-13); PLATELET COUNT 283 10^3/uL (150-450); RED BLOOD COUNT 4.27 10^6/uL (3.72-5.28); RED CELL DISTRIBUTION WIDTH 12.7 % (11.5-14.0); SEGMENTED NEUTROPHILS % (AUTO) 63.8 % (42-78); TOTAL CELLS COUNTED % (AUTO) 100 %; WHITE BLOOD COUNT 9.8 10^3/uL (4.0-10.5)
[2019-10-15 05:00] LABS: ALBUMIN 4.3 g/dL (3.5-5.0); ALKALINE PHOSPHATASE 91 U/L (38-126); ANION GAP 9 (5-19); ASPARTATE AMINO TRANSFERASE 41 U/L (14-36); BILIRUBIN,TOTAL 0.6 mg/dL (0.2-1.3); BLOOD UREA NITROGEN 9 mg/dL (7-20); CALCIUM 9.6 mg/dL (8.4-10.2); CARBON DIOXIDE 31 mmol/L (22-30); CHLORIDE 92 mmol/L (98-107); GLUCOSE 148 mg/dL (75-110); POTASSIUM 3.4 mmol/L (3.6-5.0); TOTAL PROTEIN 6.8 g/dL (6.3-8.2)
[2019-10-15 05:04] LABS: ALCOHOL < 10 mg/dL (NONE DETECTED)
[2019-10-15] MEDS ORDERED: PROMETHAZINE HCL INJ 25 MG/1 ML VIAL IV ONE (05:23)
--- NOTE | 2019-10-15 07:27 | RADIOLOGY REPORT (SQ) ---
CLINICAL HISTORY: EPIGASTRIC PAIN, H/O PANCREATITIS COMPARISON: None. TECHNIQUE: CT ABDOMEN PELVIS WITH IV CONTRAST on 10/15/2019 12:00 AM CDT This exam was performed according to our departmental dose-optimization program, which includes automated exposure control, adjustment of the mA and/or kV according to patient size and/or use of iterative reconstruction technique. FINDINGS: Lower lungs are clear. Abdomen: The liver is normal in appearance. There is no biliary dilatation. Gallbladder is normal in appearance. The pancreas is diffusely atrophic containing multiple calcifications. Pancreatic duct is dilated. There is mild peripancreatic inflammation. Spleen is normal in size. The adrenal glands and kidneys are unremarkable. Abdominal aorta is normal in course and caliber without aneurysm. There is no free air. There is no retroperitoneal adenopathy. Pelvis: There is no bowel obstruction. Urinary bladder is unremarkable. There is no free fluid. Uterus is normal in size. Appendix is not clearly seen. Skeleton: There are no acute osseous findings. No suspicious bony lesions. IMPRESSION: Suspect acute on chronic pancreatitis.
--- NOTE | 2019-10-15 08:19 | EKG REPORT ---
SEVERITY:- NORMAL ECG - SINUS RHYTHM : Confirmed by: Priyanka Matthews MD 15-Oct-2019 08:19:05
[2019-10-15] MEDS ORDERED: ALBUTEROL SULFATE 0.083% NEB 2.5 MG/3 ML AMPUL NEB PRN (10:46)
[2019-10-15] MEDS ORDERED: ACETAMINOPHEN 325 MG TABLET PO PRN (10:46)
[2019-10-15] MEDS ORDERED: ONDANSETRON HCL INJ/PF 4 MG/2 ML SDV IV PRN (10:59)
[2019-10-15] MEDS ORDERED: LORAZEPAM INJ 2 MG/1 ML VIAL IV PRN ×2 (11:49)
[2019-10-15] MEDS: PANTOPRAZOLE SODIUM 40 MG VIAL IV SCH (11:55)
[2019-10-15] MEDS: NORMAL SALINE 1000 ML 1,000 ML IV PRN ×3 (11:55→23:39)
[2019-10-15] MEDS ORDERED: GLUCAGON,HUMAN RECOMB 1 MG INJ IM PRN (11:57)
[2019-10-15] MEDS ORDERED: DEXTROSE 40% GEL 15 GM TUBE PO PRN ×2 (11:57)
[2019-10-15] MEDS ORDERED: DEXTROSE 50%-WATER 25 GM/50 ML DISP.SYRIN IV PRN ×2 (11:57)
--- NOTE | 2019-10-15 12:03 | PDOC H&P ---
History of Present Illness Admission Date/PCP: 10/15/19 11:03 ROBINA ESPINOSA MD Patient complains of: abd pain, n/v History of Present Illness: JOSE ENRIQUE SHABAZZ is a 59 year old female with a past medical history of COPD, DM 2, chronic pancreatitis, alcohol dependence with continuous use, and tobacco dependence with continuous use who presents to the emergency department today with a complaint of 1 day of epigastric abdominal discomfort and nausea and vomiting. She reports that she was unable to tolerate fluids. She has been able to hold down her oral contrast after receiving antiemetics. Patient admits to continued alcohol consumption; approximately 6 beers daily. She states that this is her normal alcohol intake; denies history of withdrawal. Evaluation in the emergency department found stable vital signs, Unremarkable CBC, mild hyponatremia and hypokalemia. AST 41, ALT 27, alk phos 91, lipase 216. Serum EtOH negative. CT abdomen pelvis confirms acute on chronic pancreatitis. She is provided IV fluids, antiemetics, analgesics. She is referred to the hospital service for further evaluation management of the above-stated complaints findings. Past Medical History Cardiac Medical History: Reports: Hyperlipidema, Hypertension Pulmonary Medical History: Reports: Chronic Obstructive Pulmonary Disease (COPD) EENT Medical History: Reports: None Neurological Medical History: Reports: None Endocrine Medical History: Reports: Diabetes Mellitus Type 2 Renal/ Medical History: Reports: None Malignancy Medical History: Reports: None GI Medical History: Reports: Other - Chronic pancreatitis Musculoskeltal Medical History: Reports: None Skin Medical History: Reports: None Psychiatric Medical History: Reports: Alcohol Dependency, Tobacco Dependency Traumatic Medical History: Reports: None Hematology: Reports: None Past Surgical History Past Surgical History: Reports: Section Social History Information Source: Patient Lives with: Alone Smoking Status: Current Every Day Smoker Cigarettes Packs Per Day: 1 Electronic Cigarette use?: Yes Frequency of Alcohol Use: Heavy Hx Recreational Drug Use: No Hx Prescription Drug Abuse: No - Advance Directive Resuscitation Status: Full Code Family History Family History: Reviewed & Not Pertinent Parental Family History Reviewed: Yes Children Family History Reviewed: Yes Sibling(s) Family History Reviewed.: Yes Medication/Allergy Home Medications: Amox Tr/Potassium Clavulanate [Augmentin 875-125 Tablet] 1 tab PO BID 10 Days tablet 10/11/16 Ciprofloxacin HCl [Ciloxan 0.3% Oph Soln 2.5 ml] 2 drop OU Q6 10 Days bottle 10/11/16 Prednisone [Deltasone 20 mg Tablet] 3 tab PO DAILY 5 Days tablet 10/11/16 Naphazoline HCl/Pheniramine [Eye Allergy Relief Drops] 1 drop OP QID #1 bottle 11/28/16 Prednisone [Deltasone 20 mg Tablet] 3 tab PO DAILY 4 Days tablet 11/28/16 Amoxicillin Trihydrate [Amoxil 500 mg Capsule] 500 mg PO TID #21 cap 12/04/16 Lorazepam [Ativan 1 mg Tablet] 1 mg PO Q4 PRN #15 tab 12/04/16 Albuterol Sulfate [Ventolin 0.083% Neb 2.5 mg/3 mL Ampul] 2 puff IH Q4HP PRN #1 vial.neb 03/22/19 Azithromycin 500 mg PO DAILY 5 Days #5 tablet 03/22/19 Prednisone 60 mg PO DAILY 5 Days #30 tablet 03/22/19 Allergies/Adverse Reactions: codeine Allergy (Verified 03/22/19 14:38) Sulfa (Sulfonamide Antibiotics) Allergy (Verified 03/22/19 14:38) Review of Systems Constitutional: ABSENT: chills, fever(s), headache(s), weight gain, weight loss Eyes: ABSENT: visual disturbances Ears: ABSENT: hearing changes Cardiovascular: ABSENT: chest pain, dyspnea on exertion, edema, orthropnea, palpitations Respiratory: ABSENT: cough, hemoptysis Gastrointestinal: PRESENT: abdominal pain, bloating, nausea, vomiting. ABSENT: constipation, diarrhea, hematemesis, hematochezia Genitourinary: ABSENT: dysuria, hematuria Musculoskeletal: ABSENT: joint swelling Integumentary: ABSENT: rash, wounds Neurological: ABSENT: abnormal gait, abnormal speech, confusion, dizziness, focal weakness, syncope Psychiatric: ABSENT: anxiety, depression, homidical ideation, suicidal ideation Endocrine: ABSENT: cold intolerance, heat intolerance, polydipsia, polyuria Hematologic/Lymphatic: ABSENT: easy bleeding, easy bruising Physical Exam Vital Signs: Temp Pulse Resp BP Pulse Ox 97.8 F 20 122/75 99 10/15/19 11:08 10/15/19 11:08 10/15/19 11:08 10/15/19 11:08 Intake & Output 10/14/19 10/15/19 10/16/19 06:59 06:59 06:59 Intake Total 1000 Balance 1000 Weight 52.2 kg General appearance: PRESENT: no acute distress, cooperative, well-developed, well-nourished Head exam: PRESENT: atraumatic, normocephalic Eye exam: PRESENT: conjunctiva pink, EOMI, PERRLA. ABSENT: scleral icterus Mouth exam: PRESENT: moist, tongue midline Neck exam: ABSENT: carotid bruit, JVD, lymphadenopathy, thyromegaly Respiratory exam: PRESENT: clear to auscultation ирина, symmetrical, unlabored. ABSENT: rales, rhonchi, wheezes Cardiovascular exam: PRESENT: RRR, +S1, +S2. ABSENT: diastolic murmur, rubs, systolic murmur Pulses: PRESENT: normal dorsalis pedis pul Vascular exam: PRESENT: normal capillary refill GI/Abdominal exam: PRESENT: normal bowel sounds, soft, tenderness. ABSENT: distended, guarding, mass, organolmegaly, rebound Rectal exam: PRESENT: deferred Extremities exam: PRESENT: full ROM. ABSENT: calf tenderness, clubbing, pedal edema Neurological exam: PRESENT: alert, awake, oriented to person, oriented to place, oriented to time, oriented to situation, CN II-XII grossly intact. ABSENT: motor sensory deficit Psychiatric exam: PRESENT: appropriate affect, normal mood. ABSENT: homicidal ideation, suicidal ideation Skin exam: PRESENT: dry, intact, warm. ABSENT: cyanosis, rash Results Laboratory Results: 10/15/19 03:47 10/15/19 03:47 10/15/19 10/15/19 03:47 03:47 WBC 9.8 RBC 4.27 Hgb 15.3 Hct 44.0 MCV 103 H MCH 35.9 H MCHC 34.8 RDW 12.7 Plt Count 283 Seg Neutrophils % 63.8 Sodium 131.8 L Potassium 3.4 L Chloride 92 L Carbon Dioxide 31 H Anion Gap 9 BUN 9 Creatinine 0.45 L Est GFR ( Amer) > 60 Glucose 148 H Calcium 9.6 Total Bilirubin 0.6 AST 41 H Alkaline Phosphatase 91 Total Protein 6.8 Albumin 4.3 Lipase 216.7 Impressions: Abdomen/Pelvis CT 10/15/19 00:00 IMPRESSION: Suspect acute on chronic pancreatitis. Assessment and Plan - Diagnosis (1) Acute on chronic pancreatitis Is this a current diagnosis for this admission?: Yes Plan: Patient is admitted to the medical floor on continuous cardiac telemetry. She is provided generous IV fluids. Started on Pancreaze AC at bedtime. Clear liquid diet; advance gradually as tolerated. Antiemetics and analgesics as needed. Follow-up chemistry and lipase. (2) Diabetes Qualifiers: Diabetes mellitus type: type 2 Diabetes mellitus skilled nursing insulin use: without skilled nursing use Is this a current diagnosis for this admission?: Yes Plan: Holding oral medications while admitted. We will check A1c with a.m. lab work. Patient is placed on a consistent carb diet. Accu-Cheks before meals and at bedtime with Humalog for sliding scale coverage. Hypoglycemia protocol in place. (3) Alcohol dependence Is this a current diagnosis for this admission?: Yes Plan: Alcohol cessation encouraged. Daily folic acid and thiamine supplementation. CIWA every 4 with sliding scale Ativan (4) Tobacco dependence Is this a current diagnosis for this admission?: Yes Plan: Smoking cessation encouraged. Nicotine replacement therapies provided. - Time Time Spent with patient: 35 or more minutes Smoking Cessation Education: 3 to 10 minutes Medications reviewed and adjusted accordingly: Yes Anticipated Discharge Disposition: Home, Self Care Anticipated Discharge Timeframe: within 24 hours
[2019-10-15 12:41] LABS: APPEARANCE,URINE CLEAR; BILIRUBIN,URINE NEGATIVE (NEGATIVE); COLOR,URINE STRAW; GLUCOSE, URINE NEGATIVE (NEGATIVE); KETONES,URINE NEGATIVE (NEGATIVE); PROTEIN,URINE NEGATIVE (NEGATIVE); URINE SPECIFIC GRAVITY 1.014; UROBILINOGEN,URINE NEGATIVE mg/dL (<2.0)
[2019-10-15 13:00] LABS: URINE AMPHETAMINES SCREEN NEGATIVE; URINE BARBITURATES SCREEN NEGATIVE; URINE BENZODIAZEPINES SCREEN NEGATIVE; URINE COCAINE SCREEN NEGATIVE; URINE METHADONE SCREEN NEGATIVE; URINE PHENCYCLIDINE SCREEN NEGATIVE
[2019-10-15 13:11] LABS: URINE MARIJUANA (THC) SCREEN UNCONFIRMED POSITIVE
[2019-10-15] MEDS: MORPHINE SULFATE 10 MG/ML INJ IV PRN ×3 (14:14→22:33)
[2019-10-15] MEDS: HEPARIN SOD (PORCINE) 5,000 UNIT/ML 1 ML VIAL SUBCUT SCH ×2 (14:15→21:47)
[2019-10-15] MEDS: PROMETHAZINE HCL INJ 25 MG/1 ML VIAL IV PRN ×3 (14:15→22:34)
[2019-10-15] MEDS ORDERED: NICOTINE 21 MG/24 HR PATCH.TD24 TD ONE (14:30)
[2019-10-15] MEDS: INSULIN LISPRO 100 UNIT/ML 3 ML VIAL SUBCUT SCH ×2 (16:48→21:44)
[2019-10-15] MEDS: LIPASE/PROTEASE/AMYLASE 1 CAP CAPSULE.DR PO SCH (16:49)
[2019-10-15] MEDS ORDERED: TRAZODONE HCL 50 MG TABLET PO PRN (21:33)
[2019-10-15] MEDS ORDERED: ATORVASTATIN CALCIUM 40 MG TABLET PO SCH (22:00)
[2019-10-15] MEDS ORDERED: METOPROLOL TARTRATE 25 MG TABLET PO ONE (22:30)
[2019-10-16] MEDS: NORMAL SALINE 1000 ML 1,000 ML IV PRN ×2 (05:00→11:46)
[2019-10-16] MEDS: HEPARIN SOD (PORCINE) 5,000 UNIT/ML 1 ML VIAL SUBCUT SCH ×2 (05:04→18:46)
[2019-10-16] MEDS: MORPHINE SULFATE 10 MG/ML INJ IV PRN (05:05)
[2019-10-16] MEDS: PROMETHAZINE HCL INJ 25 MG/1 ML VIAL IV PRN ×2 (05:05→09:37)
[2019-10-16 06:19] LABS: HEMATOCRIT 38.3 % (36.0-47.0); MEAN CORPUSCULAR HEMOGLOBIN 36.1 pg (27.0-33.4); MEAN CORPUSCULAR HGB CONC 34.6 g/dL (32.0-36.0); MEAN CORPUSCULAR VOLUME 104 fl (80-97); PLATELET COUNT 239 10^3/uL (150-450); RED BLOOD COUNT 3.67 10^6/uL (3.72-5.28); WHITE BLOOD COUNT 5.7 10^3/uL (4.0-10.5)
[2019-10-16 06:20] LABS: HEMOGLOBIN 13.2 g/dL (12.0-15.5)
[2019-10-16 06:37] LABS: BLOOD UREA NITROGEN 2 mg/dL (7-20); CALCIUM 8.8 mg/dL (8.4-10.2); CHOLESTEROL 104.32 mg/dL (0-200); GLUCOSE 132 mg/dL (75-110); POTASSIUM 3.7 mmol/L (3.6-5.0); TRIGLYCERIDES 152 mg/dL (<150)
[2019-10-16 06:43] LABS: CARBON DIOXIDE 28 mmol/L (22-30); CHLORIDE 107 mmol/L (98-107)
[2019-10-16 06:46] LABS: ANION GAP 4 (5-19); VLDL CHOLESTEROL 30.4 mg/dL (10-31)
[2019-10-16 06:48] LABS: DIRECT LDL 52 mg/dL (<100)
[2019-10-16] MEDS: INSULIN LISPRO 100 UNIT/ML 3 ML VIAL SUBCUT SCH ×3 (08:10→18:50)
[2019-10-16] MEDS: LIPASE/PROTEASE/AMYLASE 1 CAP CAPSULE.DR PO SCH ×2 (08:11→16:52)
[2019-10-16] MEDS: METOPROLOL TARTRATE 25 MG TABLET PO SCH ×2 (09:35→18:51)
[2019-10-16] MEDS: OXYCODONE-ACETAMINOPHEN 5-325 MG TABLET PO PRN ×2 (09:36→15:21)
[2019-10-16] MEDS: METFORMIN HCL 500 MG TABLET PO SCH ×2 (09:36→18:51)
[2019-10-16] MEDS ORDERED: PANTOPRAZOLE SODIUM 20 MG TABLET.DR PO SCH (10:00)
[2019-10-16] MEDS ORDERED: VALACYCLOVIR HCL 500 MG TABLET PO SCH (10:00)
[2019-10-16] MEDS ORDERED: LISINOPRIL 10 MG TABLET PO SCH (10:00)
[2019-10-16] MEDS ORDERED: THIAMINE HCL 100 MG TABLET PO SCH (10:00)
[2019-10-16] MEDS ORDERED: FOLIC ACID 1 MG TABLET PO SCH (10:00)
[2019-10-16] MEDS ORDERED: NICOTINE 21 MG/24 HR PATCH.TD24 TD SCH (10:00)
[2019-10-16 16:11] VITALS: BP 149/87
[2019-10-16] MEDS: PANTOPRAZOLE SODIUM 40 MG VIAL IV SCH (18:45)
== END 2019-10-16 18:15 | disposition home or self-care (01) ==
LOC: ER 03:24 → EH 11:03 → 4S 12:37
PROVIDERS: ADMIT Internal Medicine; ATTEND Internal Medicine
DX: K85.90 Acute pancreatitis without necrosis or infection, unspecified (principal); K86.1 Other chronic pancreatitis; J44.9 Chronic obstructive pulmonary disease, unspecified; E11.9 Type 2 diabetes mellitus without complications; F10.20 Alcohol dependence, uncomplicated; E87.1 Hypo-osmolality and hyponatremia; E87.6 Hypokalemia; E78.5 Hyperlipidemia, unspecified; I10 Essential (primary) hypertension; F17.210 Nicotine dependence, cigarettes, uncomplicated; Z79.899 Other long term (current) drug therapy; Z88.6 Allergy status to analgesic agent; Z88.2 Allergy status to sulfonamides; Z71.41 Alcohol abuse counseling and surveillance of alcoholic; Z71.6 Tobacco abuse counseling
CPT/HCPCS: 93005; 96376; 99285; 96361; 96374; 96375; 36415 ×2; 82962 ×2; 80307 ×2; 83690 ×2; 85025; 85027; 80048; 80053; 81001; 83036; 80061; 74177; 93010; J1644; J2270 ×2; J1170; J3490 ×3; C9113; J2550 ×2; J2405; J7030 ×2